=== PATIENT | female | born 1985 | race Caucasian/White ===

== ENCOUNTER → 2018-04-18 | Outpatient (CLI) | payer BC ==
[~2018-04-18] MED LIST: ACET-789 PO; AMLO2.5T PO; AMOX500C2 PO; DOCU-143 PO; IBUP-1773 PO; LABE100T6 PO; LEVO100T7 PO; LVT.05T PO; METF500T8 PO; NF-ESOM40C PO; OMEP20CA12 PO; OXYC-12 PO; PREN1TAB86 PO; PRENATAL VITAMINS
--- NOTE | 2018-04-18 20:13 | Diagnostic Imaging Report ---
INDICATION: Routine screening. No prior mammograms are available for comparison. This is a baseline study. 2-D and 3-D bilateral screening mammography was performed with a Computer Aided Detection (CAD) system. FINDINGS: Both breasts appear heterogeneously dense, limiting the sensitivity of mammography. No mass or malignant-appearing microcalcifications are seen. The axillae are unremarkable. IMPRESSION: No mammographic features suspicious for malignancy are identified. ACR BI-RADS Category 1: Negative. Result letter will be mailed to the patient. Note: At least 10% of breast cancer is not imaged by mammography. Dictated by: Dictated on workstation # [id number]
== END ==
LOC: RAD 12:51
PROVIDERS: ATTEND Family Medicine
DX: Z12.31 Encounter for screening mammogram for malignant neoplasm of breast (principal); Z85.3 Personal history of malignant neoplasm of breast
CPT/HCPCS: 77067

== ENCOUNTER → 2019-04-26 | Outpatient (CLI) | payer BC ==
--- NOTE | 2019-04-26 09:39 | Diagnostic Imaging Report ---
INDICATION: Routine screening. COMPARISON is made with prior mammogram from 04/18/2018. 2-D and 3-D bilateral screening mammography was performed with CAD. Both breasts remain heterogeneously dense, limiting the sensitivity of mammography. No mass or malignant appearing microcalcifications are seen. There does appear to be some ductal ectasia in the retroareolar regions of both breasts. Axillae are unremarkable. IMPRESSION: BI-RADS Category 2. No mammographic features suspicious for malignancy are identified. ACR BI-RADS Category 2: Benign findings. Result letter will be mailed to the patient. Note: At least 10% of breast cancer is not imaged by mammography. Dictated by: Dictated on workstation # [id number]
== END ==
LOC: RAD 07:51
PROVIDERS: ATTEND Family Medicine
DX: Z12.31 Encounter for screening mammogram for malignant neoplasm of breast (principal)
CPT/HCPCS: 77067

== ENCOUNTER → 2019-12-04 | Outpatient (CLI) | payer BC, OTHER ==
--- NOTE | 2019-12-04 13:11 | Diagnostic Imaging Report ---
EXAMINATION: Left hip at 12:42 PM. INDICATION: Hip pain. TECHNIQUE: AP and lateral views were obtained. FINDINGS: There is no fracture, dislocation, or acute bony abnormality evident. The hip joint is fairly well-maintained and appears similar to the quality rn film from the CT abdomen/pelvis exam of 07/13/2014. The soft tissues are unremarkable. IMPRESSION: There is no evidence for an acute bony abnormality. Dictated by: Dictated on workstation # [id number]
== END ==
LOC: RAD 12:13
PROVIDERS: ATTEND Family Medicine
DX: M25.552 Pain in left hip (principal)
CPT/HCPCS: 73502

== ENCOUNTER → 2021-06-04 | Outpatient (CLI) | payer BC | LOC: LABNPT 13:55 | PROVIDERS: ATTEND Obstetrics & Gynecology | DX: Z36.89 Encounter for other specified antenatal screening (principal) | CPT/HCPCS: 82105; 82677; 84702 ==

== ENCOUNTER → 2021-06-26 | Outpatient (CLI) | payer BC ==
--- NOTE | 2021-06-26 18:41 | Diagnostic Imaging Report ---
INDICATION: patient, survey. TECHNIQUE: Multiple real-time grayscale images were obtained over the gravid uterus. COMPARISON: There is no prior study for comparison. FINDINGS: A single live intrauterine fetus is seen measuring 21 weeks 0 days by composite measurements. The fetus is in cephalic presentation. Amniotic fluid is qualitatively normal. There is no subchorionic bleed. Placenta is anterior and grade 1 with no evidence of previa. heart rate is 140 bpm. Maternal adnexa were not well seen but show no free fluid. Sonographic EDC is 11/06/2021. anatomical survey showed no detectable abnormalities. Normal variant kidneys and bladder were seen. Normal-appearing stomach was seen. Intracranial ventricles were nondilated. Four-chamber heart view appears unremarkable. Three-vessel cord and cord insertion appear unremarkable. There is normal appearance of the spine. Biometrical measurements are as follows: Biparietal 4.71 cm, age 20 weeks 2 days. Head circumference 18.81 cm, age 21 weeks 1 days. Abdominal circumference 16.00 cm, age 21 weeks 2 days. Femur length 3.53 cm, age 21 weeks 2 days. Sonographic estimate age: 21 weeks 0 days. Sonographic estimated date of delivery: 11/06/2021. Estimated Weight: 399 gm (+/- 59 gm). LMP percentile: 58%. heart rate: 140 beats per minute. number: 1 of 1. IMPRESSION: Single live intrauterine fetus measuring 21 weeks 0 days in size. There was no detectable abnormality. Dictated by: Dictated on workstation # [id number]
== END ==
LOC: RAD 15:15
PROVIDERS: ATTEND Obstetrics & Gynecology
DX: Z34.02 Encounter for supervision of normal first pregnancy, second trimester (principal); Z3A.21 21 weeks gestation of pregnancy
CPT/HCPCS: 76805

== ENCOUNTER 2021-10-22 06:00 | Inpatient (IN) | payer MEDICAID ==
[2021-10-22] VITALS (62 sets, daily range): BP systolic 102–196; BP diastolic 57–102
[~2021-10-22] VITALS: Ht 165.1 cm; Wt 120.3 kg
[~2021-10-22 06:00] MED LIST changes: -LABE100T6 PO; +LABE100T9 PO
[2021-10-22] MEDS ORDERED: LABE100T9 PO (06:27)
[2021-10-22] MEDS ORDERED: LEVO100T7 PO (06:27)
[2021-10-22] MEDS ORDERED: METF-397 PO (06:28)
[2021-10-22] MEDS ORDERED: PREG100C55 PO (06:29)
[2021-10-22] MEDS ORDERED: CITA20TA9 PO (06:30)
[2021-10-22] MEDS ORDERED: LABE200T10 PO (06:31)
[2021-10-22] MEDS ORDERED: D5 LR IV SOLUTION 1,000 ML IV SCH (06:45)
[2021-10-22 07:00] LABS: BASOPHILS % (AUTO) 0 % (0-10); EOSINOPHILS # (AUTO) 0.1 10^3/uL (0.0-0.3); EOSINOPHILS % (AUTO) 1 % (0-10); HEMATOCRIT 35 % (35-52); HEMOGLOBIN 11.8 g/dL (11.5-16.0); LYMPHOCYTES % (AUTO) 22 % (12-44); MEAN CORPUSCULAR HEMOGLOBIN 30 pg (25-34); MEAN CORPUSCULAR HGB CONC 34 g/dL (32-36); MEAN CORPUSCULAR VOLUME 90 fL (80-99); MEAN PLATELET VOLUME 12.7 fL (9.0-12.2); MONOCYTES # (AUTO) 0.5 10^3/uL (0.0-1.0); MONOCYTES % (AUTO) 6 % (0-12); NEUTROPHILS # (AUTO) 6.3 10^3/uL (1.8-7.8); NEUTROPHILS % (AUTO) 71 % (42-75); PLATELET COUNT 187 10^3/uL (130-400); WHITE BLOOD COUNT 8.9 10^3/uL (4.3-11.0)
--- NOTE | 2021-10-22 07:30 | History & Physical-OB ---
MARTIN ANSARI 10/22/21729: OB - Chief Complaint & HPI Date/Time Date of Admission: Date of Admission: Oct 22, 2021 at 06:00 Date seen by a Provider: Oct 22, 2021 Time Seen by a Provider: 07:45 Chief Complaint/History OB-Reason for Admission/Chief: Induction of Labor Hx : 6 Hx Para: 1 Gestational Age in Weeks: 38 History of Labs 36 yo F @ 38 weeks here for induction of labor Advanced maternal age GDM on Metformin B+ RI RPR NR HBsAg NR HIV NR GC neg GBS neg Allergies and Home Medications Allergies Coded Allergies: No Known Drug Allergies (Unverified , 02/13/13) Patient Home Medication List Home Medication List Reviewed: Yes Citalopram Hydrobromide (Citalopram HBr) 20 Mg Tablet, 20 MG PO DAILY, (Reported) Entered as Reported by: JUDITH MARKS on 10/22/21629 Last Action: New Order Labetalol HCl (Labetalol HCl) 200 Mg Tablet, 200 MG PO BID, (Reported) Entered as Reported by: JUDITH MARKS on 10/22/21630 Last Action: New Order Levothyroxine Sodium (Levothyroxine Sodium) 100 Mcg Tablet, 88 MCG PO DAILY Prescribed by: JUDITH MARKS on 10/22/21626 Last Action: New Order Metformin HCl (Metformin HCl) 500 Mg Tablet, 500 MG PO TID, (Reported) Entered as Reported by: JUDITH MARKS on 10/22/21627 Last Action: New Order Pregabalin (Pregabalin) 100 Mg Capsule, 100 MG PO TID, (Reported) Entered as Reported by: JUDITH MARKS on 10/22/21628 Last Action: New Order Vit W-Ca,Fe,FA(<1 mg) ( Vitamins) 1 Each Tablet, 1 EACH PO DAILY, (Reported) Entered as Reported by: MISHA FLETCHER on 12/24/15613 Last Action: Reviewed Discontinued Medications Acetaminophen with Codeine (Tylenol with Codeine #3 Tablet) 1 Each Tablet, 1 EACH PO Q4H PRN for PAIN Discontinued Reason: No Longer Taking Prescribed by: MARY DUNHAM on 12/24/15 1283 Last Action: Discontinued Docusate Sodium (Colace) 100 Mg Capsule, 100 MG PO BID PRN for CONSTIPATION Discontinued Reason: No Longer Taking Prescribed by: MARY DUNHAM on 12/24/151843 Last Action: Discontinued Ibuprofen (Ibuprofen) 600 Mg Tablet, 600 MG PO Q6H Discontinued Reason: No Longer Taking Prescribed by: MARY DUNHAM on 12/24/151843 Last Action: Discontinued Labetalol HCl (Labetalol HCl) 100 Mg Tablet, 100 MG PO DAILY, (Reported) Discontinued Reason: No Longer Taking Entered as Reported by: ARABELLA TAYLOR on 12/24/15729 Last Action: Discontinued Labetalol HCl (Labetalol HCl) 100 Mg Tablet, 100 MG PO BID, (Reported) Discontinued Reason: No Longer Taking Entered as Reported by: JUDITH MARKS on 10/22/21626 Last Action: Discontinued Metformin Hcl (Metformin Er 500MG) 500 Mg Tab.sr.24h, 1 EACH PO DAILY WITH MEAL, (Reported) Discontinued Reason: No Longer Taking Entered as Reported by: SENA FERMIN on 07/14/145 Last Action: Discontinued OB - History Hx of Present Obstetrical Complications: Gestational Diabetes, Gestational Hypertension Medical Complications: None Information Induced Hypertension: Yes Maternal Gestational Diabetes: Yes Delivery History Hx Blood Disorders: No Patient Past Medical History see above hpi Cholecystecomy 7 years ago Immunizations Tetanus Booster (TDap): Less than 5yrs OB - Admission Exam Physical Exam Vitals: Vital Signs 10/22/21 06:35 Temp 36.3 Pulse 76 Resp 18 Pulse Ox 98 O2 Delivery Room Air Abdomen: Gravid Extremities: Normal Contractions on Admission: >10 Minutes Apart Labs Laboratory Tests Test 10/22/21 06:45 Range/Units White Blood Count 8.9 4.3-11.0 10^3/uL Red Blood Count 3.89 3.80-5.11 10^6/uL Hemoglobin 11.8 11.5-16.0 g/dL Hematocrit 35 35-52 % Mean Corpuscular Volume 90 80-99 fL Mean Corpuscular Hemoglobin 30 25-34 pg Mean Corpuscular Hemoglobin Concent 34 32-36 g/dL Red Cell Distribution Width 13.5 10.0-14.5 % Platelet Count 187 130-400 10^3/uL Mean Platelet Volume 12.7 H 9.0-12.2 fL Immature Granulocyte % (Auto) 0 % Neutrophils (%) (Auto) 71 42-75 % Lymphocytes (%) (Auto) 22 12-44 % Monocytes (%) (Auto) 6 0-12 % Eosinophils (%) (Auto) 1 0-10 % Basophils (%) (Auto) 0 0-10 % Neutrophils # (Auto) 6.3 1.8-7.8 10^3/uL Lymphocytes # (Auto) 2.0 1.0-4.0 10^3/uL Monocytes # (Auto) 0.5 0.0-1.0 10^3/uL Eosinophils # (Auto) 0.1 0.0-0.3 10^3/uL Basophils # (Auto) 0.0 0.0-0.1 10^3/uL Immature Granulocyte # (Auto) 0.0 0.0-0.1 10^3/uL OB - Assessment/Plan/Diagnosis Assessment Assessment: induction of labor Admission Dx 36 yo female @38 weeks here for induction of labor Admission Status: Inpatient Order (span 2 midnights) Reason for Inpatient Admission: observation Plan Plan: Expectant Management, Induction Induction Method: per Pitocin Protocol DANNY GOMEZ DO 10/22/21 1318: Allergies and Home Medications Allergies Coded Allergies: No Known Drug Allergies (Unverified , 02/13/13) Patient Home Medication List Citalopram Hydrobromide (Citalopram HBr) 20 Mg Tablet, 20 MG PO DAILY, (Report ed) Entered as Reported by: JUDITH MARKS on 10/22/21629 Last Action: New Order Labetalol HCl (Labetalol HCl) 200 Mg Tablet, 200 MG PO BID, (Reported) Entered as Reported by: JUDITH MARKS on 10/22/21630 Last Action: New Order Levothyroxine Sodium (Levothyroxine Sodium) 100 Mcg Tablet, 88 MCG PO DAILY Prescribed by: JUDITH MARKS on 10/22/21626 Last Action: New Order Metformin HCl (Metformin HCl) 500 Mg Tablet, 500 MG PO TID, (Reported) Entered as Reported by: JUDITH MARKS on 10/22/21627 Last Action: New Order Pregabalin (Pregabalin) 100 Mg Capsule, 100 MG PO TID, (Reported) Entered as Reported by: JUDITH MARKS on 10/22/2129 Last Action: New Order Vit W-Ca,Fe,FA(<1 mg) ( Vitamins) 1 Each Tablet, 1 EACH PO DAILY, (Reported) Entered as Reported by: MISHA M JUSTINE on 12/24/1514 Last Action: Reviewed Discontinued Medications Acetaminophen with Codeine (Tylenol with Codeine #3 Tablet) 1 Each Tablet, 1 EACH PO Q4H PRN for PAIN Discontinued Reason: No Longer Taking Prescribed by: MARY DUNHAM on 12/24/151843 Last Action: Discontinued Docusate Sodium (Colace) 100 Mg Capsule, 100 MG PO BID PRN for CONSTIPATION Discontinued Reason: No Longer Taking Prescribed by: MARY DUNAHM on 12/24/151843 Last Action: Discontinued Ibuprofen (Ibuprofen) 600 Mg Tablet, 600 MG PO Q6H Discontinued Reason: No Longer Taking Prescribed by: MARY DUNHAM on 12/24/151843 Last Action: Discontinued Labetalol HCl (Labetalol HCl) 100 Mg Tablet, 100 MG PO DAILY, (Reported) Discontinued Reason: No Longer Taking Entered as Reported by: ARABELLA TAYLOR on 12/24/1530 Last Action: Discontinued Labetalol HCl (Labetalol HCl) 100 Mg Tablet, 100 MG PO BID, (Reported) Discontinued Reason: No Longer Taking Entered as Reported by: JUDITH MARKS on 10/22/21626 Last Action: Discontinued Metformin Hcl (Metformin Er 500MG) 500 Mg Tab.sr.24h, 1 EACH PO DAILY WITH MEAL, (Reported) Discontinued Reason: No Longer Taking Entered as Reported by: SENA FERMIN on 07/14/14 0115 Last Action: Discontinued OB - Assessment/Plan/Diagnosis Plan Other Plan Verification and Attestation of Medical Student E/M Service A medical student performed and documented this service in my presence. I reviewed and verified all information documented by the medical student and made modifications to such information, when appropriate. I personally performed the physical exam and medical decision making. Danny Gomez, Oct 22, 2021,13:18 MARTIN ANSARI Oct 22, 2021 07:30 DANNY GOMEZ DO Oct 22, 2021 13:18
[2021-10-22] MEDS ORDERED: OXYTOCIN PRE-MIX DRIP 500 ML IV ONE (08:24)
[2021-10-22] MEDS ORDERED: NS IV 1000 ML 1,000 ML ONE (08:27)
[2021-10-22] MEDS: NS IV 1000 ML 1,000 ML IV SCH ×2 (08:33→14:51)
[2021-10-22] MEDS ORDERED: OXYTOCIN PRE-MIX DRIP 500 ML IV SCH ×2 (08:45→19:00)
[2021-10-22] MEDS ORDERED: fentaNYL 2 mcg/ml BUPIVA 0.125 100 ML ONE (13:20)
[2021-10-22] MEDS ORDERED: LACTATED RINGERS 1,000 ML IV ONE (13:20)
[2021-10-22] MEDS ORDERED: fentaNYL INJ 100 MCG/2 ML AMP ONE ×2 (13:53→14:20)
[2021-10-22] MEDS ORDERED: BUPIVACAINE 0.25% 10 ML (SENSORCAINE) VIAL ONE (13:53)
[2021-10-22] MEDS ORDERED: CATHETER FLUSH 10 ML SYR IV SCH ×2 (14:00→22:00)
[2021-10-22] MEDS ORDERED: BUPIVACAINE SPINAL 0.75% (SENSORCAINE) 2 ML AMP ONE (14:20)
[2021-10-22] MEDS: fentaNYL 2 mcg/ml BUPIVA 0.125 100 ML EPI SCH ×2 (14:30→14:45)
[2021-10-22] MEDS ORDERED: NALOXONE 0.4 MG/ML 1 ML (NARCAN) VIAL IV PRN ×3 (14:45→19:00)
[2021-10-22] MEDS ORDERED: LACTATED RINGERS 1,000 ML IV SCH ×2 (14:45)
[2021-10-22] MEDS ORDERED: fentaNYL 2 mcg/ml BUPIVA 0.125 100 ML EPI SCH (14:45)
[2021-10-22] MEDS ORDERED: diphenhydrAMINE 50 MG/ML INJ (BENADRYL) IV PRN ×2 (14:45)
[2021-10-22] MEDS ORDERED: ONDANSETRON 4 MG/2 ML (SDV) Z0FRAN IV PRN ×2 (14:45)
--- NOTE | 2021-10-22 18:59 | OB Labor & Delivery Record ---
L&D History Date of Service Date of Service: Oct 22, 2021 History Expected Date of Delivery: Nov 07, 2021 Gestational Age in Weeks: 38 Hx : 6 Hx Para: 1 Complications Events: Gestational Diabetes, Routine care Operative Indications (Cesarea: N/A-Vaginal Delivery Intrapartal Events: None L&D Stage1 Stage One Onset of Labor - Date: Oct 22, 2021 Monitors and Tracing Monitor Mode: External Heart Rate: 130 Monitor Accelerations: Uniform Monitor Decelerations: Variable Station: -2 Detention Variability: Average (6-10) Short Term Variability: Present Presentation: Vertex Vital Signs VS - Last 72 Hours, by Label 10/22/21 10/22/21 10/22/21 10/22/21 06:35 07:30 08:30 08:45 Temp 36.3 36.8 36.8 Pulse 76 71 75 75 Resp 18 18 18 18 B/P (MAP) 136/68 (90) 187/84 (118) 187/84 (118) Pulse Ox 98 O2 Delivery Room Air Room Air Room Air Room Air 10/22/21 10/22/21 10/22/21 10/22/21 09:36 09:45 10:00 10:15 Temp 36.8 Pulse 75 76 58 67 Resp 18 18 18 18 B/P (MAP) 139/83 (101) 145/76 (99) 133/71 (91) 138/70 (92) Pulse Ox 98 98 98 99 O2 Delivery Room Air Room Air Room Air Room Air 10/22/21 10/22/21 10/22/21 10/22/21 10:30 10:45 11:00 11:15 Temp 36.7 Pulse 70 70 70 70 Resp 18 18 18 18 B/P (MAP) 142/67 (92) 146/76 (99) 146/76 (99) 146/76 (99) Pulse Ox 99 99 99 99 O2 Delivery Room Air Room Air Room Air Room Air 10/22/21 10/22/21 10/22/21 10/22/21 11:30 11:45 12:00 12:15 Temp 36.6 Pulse 70 70 70 70 Resp 18 18 18 18 B/P (MAP) 146/76 (99) 157/72 (100) 157/72 (100) 157/72 (100) Pulse Ox 99 99 99 99 O2 Delivery Room Air Room Air Room Air Room Air 10/22/21 10/22/21 10/22/21 10/22/21 12:30 12:45 13:36 13:45 Pulse 70 70 70 71 Resp 18 18 18 18 B/P (MAP) 157/72 (100) 157/72 (100) 174/79 (110) 164/69 (100) Pulse Ox 99 99 98 99 O2 Delivery Room Air Room Air Room Air Room Air 10/22/21 10/22/21 10/22/21 10/22/21 14:00 14:02 14:05 14:08 Temp 36.8 36.8 Pulse 71 71 85 82 Resp 18 18 18 18 B/P (MAP) 192/83 (119) 192/83 (119) 196/80 (118) 188/77 (114) Pulse Ox 99 99 97 97 O2 Delivery Room Air Room Air Room Air Room Air 10/22/21 10/22/21 10/22/21 10/22/21 14:11 14:14 14:17 14:19 Pulse 86 70 76 74 Resp 18 18 18 18 B/P (MAP) 190/81 (117) 170/81 (110) 177/86 (116) 162/75 (104) Pulse Ox 97 99 99 99 O2 Delivery Room Air Room Air Room Air 10/22/21 10/22/21 10/22/21 10/22/21 14:25 14:30 14:35 14:45 Pulse 71 66 70 69 Resp 18 18 18 18 B/P (MAP) 151/68 (95) 141/67 (91) 129/61 (83) 153/72 (99) Pulse Ox 99 98 99 99 10/22/21 10/22/21 10/22/21 10/22/21 15:00 15:15 15:30 15:45 Pulse 69 72 72 72 Resp 18 18 18 18 B/P (MAP) 153/72 (99) 136/74 (94) 136/74 (94) 136/74 (94) Pulse Ox 99 99 99 99 10/22/21 10/22/21 10/22/21 10/22/21 16:00 16:15 16:30 16:45 Pulse 72 70 70 71 Resp 18 18 18 18 B/P (MAP) 138/75 (96) 130/69 (89) 130/76 (94) 134/78 (96) Pulse Ox 99 99 98 98 10/22/21 10/22/21 17:00 17:30 Temp 36.7 Pulse 65 Resp 18 B/P (MAP) 135/69 (91) Pulse Ox 100 O2 Flow Rate 15.00 Rupture of Membranes Spontaneous Ruture of Membrane: No Amniotic Membrane Rupture Time: 08 Amniotic Membrane Fluid Desc.: Clear Vaginal Bleeding Description: Normal Show Induction/Anesthesia Epidural Cath Placement - Time: 1412 L&D Stage2 Stage Two Stage II Date: Oct 22, 2021 Monitors and Tracing Monitor Mode: External Heart Rate: 130 Position: Right Occiput Anterior Presentation: Vertex Cord Descript/Complications Cord Vessel Description: 3 Vessels Complications heart rate dropped to 50s during 2nd stage labor. Due to need for urgent delivery +2 station, kiwi vacuum used. Cup placed over flexion point on scalp. 550 mg Hg applied using handpiece, and with gentle extension the head was delivered over intact perineum. Tight nuchal cord delivered through Delivery Type Delivery Method: Spontaneous Vaginal Anterior Shoulder: Right Episiotomy/Perineal Laceration Laceraction(s)/Extensions: No Condition of Infant Delivery 1 minute Comment: 8 5 minute Comment: 9 Notes Live male weight pending Condition of Condition of Infant: Living Exam: No Observed Abnormalities Resuscitation Resuscitation: N/A - Spontaneous Resp L&D Stage3 Stage Three Stage III Date: Oct 22, 2021 Pictocin Pitocin Administration mu/min: 2 Pitocin ml/hr: 2 Pitocin Administration Comment: 30 mu wide open after delivery of placenta Placenta Delivery Placenta Delivery: Spontaneous Delivery Summary Summary Estimated blood loss (mL): 300 Attending at delivery: Francoise Argueta DO Condition of Delivery Examined: Cervix Examined, Uterus Explored Post Hemorrhage: No Condition of Mother stable Condition of (s) stable FRANCOISE ARGUETA DO Oct 22, 2021 18:59
[2021-10-22] MEDS ORDERED: TETANUS,DIPTH,PERTUSS P/F (BOOSTRIX) 0.5 ML VIAL IM ONE (19:00)
[2021-10-22] MEDS ORDERED: MEASLES,MUMPS,RUBELLA 1 EA INJ SQ ONE (19:00)
[2021-10-22] MEDS ORDERED: BENZOCAINE/MENTHOL (DERMOPLAST) 56 ML CAN TP PRN (19:00)
[2021-10-22] MEDS ORDERED: WITCH HAZEL(TUCKS) 40 EA JAR TOP PRN (19:00)
[2021-10-22] MEDS ORDERED: DIBUCAINE 1% OINTMENT 30 GM TUBE TOP PRN (19:00)
--- NOTE | 2021-10-22 19:11 | Discharge Inst-Women's Service ---
Discharge Inst-Women's Serv Depart Medication/Instructions New, Converted or Re-Newed RX: Transmitted to Pharmacy Final Diagnosis PPD 1 VAVD Problems Reviewed?: Yes Consults/Follow Up Additional Follow Up: Yes Orders/Referrals Dr. Argueta in 6 weeks Activity Activity: Activity as Tolerated Driving Instructions: No Driving for 1 Week NO SMOKING: NO SMOKING Nothing Inside Vagina: No Douching, No [place], No Tampons Diet Discharge Diet: No Restrictions Symptoms to Report to : Bleeding Excessive, Pain Increased, Fever Over 101 Degrees F, Vaginal Bleeding Increase, Questions/Concerns For Any Problems or Questions: Contact Your Physician FRANCOISE ARGUETA DO Oct 22, 2021 19:11
[2021-10-22] MEDS ORDERED: DOCU100C37 PO (19:13)
[2021-10-22] MEDS ORDERED: DIBU30OI TOP (19:13)
[2021-10-22] MEDS ORDERED: BENZ78AE5 TP (19:13)
[2021-10-22] MEDS ORDERED: IBUP-844 PO (19:13)
[2021-10-22] MEDS: DOCUSATE SODIUM 100 MG (COLACE) CAP PO SCH (22:10)
[2021-10-22] MEDS: IBUPROFEN 600 MG (MOTRIN) TAB PO SCH (22:10)
[2021-10-22] MEDS: LABETALOL 200 MG (NORMODYNE) TAB PO SCH (22:10)
[2021-10-22] MEDS: metFORMIN 500 MG (GLUCOPHAGE) TAB PO SCH (22:10)
[2021-10-23 02:15] VITALS: BP 130/59
[2021-10-23] MEDS: IBUPROFEN 600 MG (MOTRIN) TAB PO SCH ×4 (04:22→21:57)
[2021-10-23 06:04] LABS: BASOPHILS % (AUTO) 0 % (0-10); EOSINOPHILS # (AUTO) 0.1 10^3/uL (0.0-0.3); EOSINOPHILS % (AUTO) 1 % (0-10); HEMATOCRIT 33 % (35-52); HEMOGLOBIN 11.1 g/dL (11.5-16.0); LYMPHOCYTES # (AUTO) 2.1 10^3/uL (1.0-4.0); LYMPHOCYTES % (AUTO) 21 % (12-44); MEAN CORPUSCULAR HEMOGLOBIN 30 pg (25-34); MEAN CORPUSCULAR HGB CONC 34 g/dL (32-36); MEAN CORPUSCULAR VOLUME 90 fL (80-99); MEAN PLATELET VOLUME 12.6 fL (9.0-12.2); MONOCYTES # (AUTO) 0.6 10^3/uL (0.0-1.0); MONOCYTES % (AUTO) 6 % (0-12); NEUTROPHILS # (AUTO) 7.4 10^3/uL (1.8-7.8); NEUTROPHILS % (AUTO) 72 % (42-75); PLATELET COUNT 168 10^3/uL (130-400); WHITE BLOOD COUNT 10.2 10^3/uL (4.3-11.0)
[2021-10-23 06:45] VITALS: BP 126/63
[2021-10-23] MEDS: LEVOTHYROXINE 88 MCG (LEVOTHORID) TAB PO SCH (06:46)
[2021-10-23 08:15] VITALS: BP 149/70
[2021-10-23] MEDS: FERROUS SULF 325 MG (IRON) TAB PO SCH (08:16)
[2021-10-23] MEDS: DOCUSATE SODIUM 100 MG (COLACE) CAP PO SCH ×2 (08:16→21:56)
[2021-10-23] MEDS: LABETALOL 200 MG (NORMODYNE) TAB PO SCH ×2 (08:17→21:57)
[2021-10-23] MEDS: metFORMIN 500 MG (GLUCOPHAGE) TAB PO SCH ×3 (08:17→21:57)
[2021-10-23] MEDS: PRENATAL VITAMIN 1 EA TAB PO SCH (08:17)
--- NOTE | 2021-10-23 10:14 | Postpartum Progress Note ---
Note Note Day # 1 Subjective: Patient is without complaints. Ambulating, voiding. Tolerating a regular diet without nausea or vomiting. Normal lochia. Pain is well controlled with oral pain medications. Physical Exam: General - Alert and oriented, no apparent distress Abdomen - Soft, appropriately tender to palpation, non-distended, fundus firm at umbilicus Extremities - no edema, negative Augusto's bilaterally Assessment: Post- day # 1, status post vaginal delivery. Recovering well, hemodynamically stable Acute blood loss anemia Plan: Routine care. Encourage breast feeding. Encourage ambulation. Ferrous sulfate supplementation. Plan for discharge today Vitals - Labs Vital Signs - I&O Vital Signs Date Time Temp Pulse Resp B/P (MAP) Pulse Ox O2 Delivery O2 Flow Rate FiO2 10/23/21 08:15 36.2 66 18 149/70 (96) 98 Room Air 10/23/21 06:45 36.1 69 18 126/63 (84) 97 Room Air 10/23/21 02:15 36.4 79 18 130/59 (82) 97 Room Air 10/22/21 22:07 80 18 139/67 (91) Room Air 10/22/21 21:59 83 18 122/63 (82) Room Air 10/22/21 21:44 90 18 126/69 (88) Room Air 10/22/21 21:29 85 18 127/60 (82) Room Air 10/22/21 21:14 87 18 121/60 (80) Room Air 10/22/21 20:59 88 18 129/60 (83) Room Air 10/22/21 20:44 84 18 140/70 (93) Room Air 10/22/21 20:29 92 18 143/67 (92) Room Air 10/22/21 20:14 85 18 102/59 (73) Room Air 10/22/21 19:59 85 18 151/63 (92) Room Air 10/22/21 19:45 74 18 153/71 (98) Room Air 10/22/21 19:44 74 18 177/102 (127) Room Air 10/22/21 19:29 35.7 77 18 174/95 (121) Room Air 10/22/21 19:15 162/81 (108) 10/22/21 19:00 171/84 (113) 10/22/21 18:45 36.7 65 18 122/57 (78) 100 Room Air 15.00 15.00 10/22/21 18:30 36.7 65 18 122/57 (78) 100 Room Air 15.00 15.00 10/22/21 18:15 36.7 65 18 122/57 (78) 100 Room Air 15.00 15.00 10/22/21 18:01 122/58 (79) 10/22/21 18:00 36.7 65 18 122/57 (78) 100 Room Air 15.00 15.00 10/22/21 17:45 36.7 65 18 122/57 (78) 100 Room Air 15.00 15.00 10/22/21 17:30 65 18 135/69 (91) 100 15.00 10/22/21 17:00 36.7 10/22/21 16:45 71 18 134/78 (96) 98 10/22/21 16:30 70 18 130/76 (94) 98 10/22/21 16:15 70 18 130/69 (89) 99 10/22/21 16:00 72 18 138/75 (96) 99 10/22/21 15:45 72 18 136/74 (94) 99 10/22/21 15:30 72 18 136/74 (94) 99 10/22/21 15:15 72 18 136/74 (94) 99 10/22/21 15:00 69 18 153/72 (99) 99 10/22/21 14:45 69 18 153/72 (99) 99 10/22/21 14:35 70 18 129/61 (83) 99 10/22/21 14:30 66 18 141/67 (91) 98 10/22/21 14:25 71 18 151/68 (95) 99 10/22/21 14:19 74 18 162/75 (104) 99 10/22/21 14:17 76 18 177/86 (116) 99 Room Air 10/22/21 14:14 70 18 170/81 (110) 99 Room Air 10/22/21 14:11 86 18 190/81 (117) 97 Room Air 10/22/21 14:08 82 18 188/77 (114) 97 Room Air 10/22/21 14:05 36.8 85 18 196/80 (118) 97 Room Air 10/22/21 14:02 36.8 71 18 192/83 (119) 99 Room Air 10/22/21 14:00 71 18 192/83 (119) 99 Room Air 10/22/21 13:45 71 18 164/69 (100) 99 Room Air 10/22/21 13:36 70 18 174/79 (110) 98 Room Air 10/22/21 12:45 70 18 157/72 (100) 99 Room Air 10/22/21 12:30 70 18 157/72 (100) 99 Room Air 10/22/21 12:15 70 18 157/72 (100) 99 Room Air 10/22/21 12:00 70 18 157/72 (100) 99 Room Air 10/22/21 11:45 70 18 157/72 (100) 99 Room Air 10/22/21 11:30 36.6 70 18 146/76 (99) 99 Room Air 10/22/21 11:15 70 18 146/76 (99) 99 Room Air 10/22/21 11:00 70 18 146/76 (99) 99 Room Air 10/22/21 10:45 70 18 146/76 (99) 99 Room Air 10/22/21 10:30 36.7 70 18 142/67 (92) 99 Room Air 10/22/21 10:15 67 18 138/70 (92) 99 Room Air I & O 10/23/21 07:00 Intake Total 2500 ml Balance 2500 ml Labs Laboratory Tests 10/22/21 22:07: Glucometer 152H 10/23/21 05:46: White Blood Count 10.2, Red Blood Count 3.68L, Hemoglobin 11.1L, Hematocrit 33L, Mean Corpuscular Volume 90, Mean Corpuscular Hemoglobin 30, Mean Corpuscular Hemoglobin Concent 34, Red Cell Distribution Width 13.1, Platelet Count 168, Mean Platelet Volume 12.6H, Immature Granulocyte % (Auto) 0, Neutrophils (%) (Auto) 72, Lymphocytes (%) (Auto) 21, Monocytes (%) (Auto) 6, Eosinophils (%) (Auto) 1, Basophils (%) (Auto) 0, Neutrophils # (Auto) 7.4, Lymphocytes # (Auto) 2.1, Monocytes # (Auto) 0.6, Eosinophils # (Auto) 0.1, Basophils # (Auto) 0.0, Immature Granulocyte # (Auto) 0.0 10/23/21 06:44: Glucometer 92 JOVANNY DIAZ APRN Oct 23, 2021 10:14
[2021-10-23] MEDS ORDERED: TETANUS,DIPTH,PERTUSS P/F (BOOSTRIX) 0.5 ML VIAL IM ONE (13:05)
[2021-10-23 15:44] VITALS: BP 138/65
--- NOTE | 2021-10-23 18:05 | Anesthesia-Regional Post-Op ---
Regional Patient Condition Headache: Present (slight) Post Op Complications Complications None Follow Up Care/Instructions Patient Instructions Patient with IT catheter. Removed without difficulty. Tip intact. Spoke with Patient about expectations, risk, side effects and treatment option if a PDPH develops. Patient verbalized understanding. Anesthesia/Patient Condition Patient is doing well, no complaints other than noted above, stable vital signs, no apparent adverse anesthesia problems. No complications reported per nursing. MORRIS SWAIN CRNA Oct 23, 2021 18:04
[2021-10-23 21:57] VITALS: BP 131/61
[2021-10-23] MEDS ORDERED: ACETAMINOPHEN 500 MG TAB (TYLENOL) PO PRN ×2 (23:45→23:59)
[2021-10-23] MEDS ORDERED: ACETAMINOPHEN 500 MG TAB (TYLENOL) ONE (23:48)
[2021-10-24 03:42] VITALS: BP 121/59
[2021-10-24] MEDS: IBUPROFEN 600 MG (MOTRIN) TAB PO SCH ×3 (03:42→16:40)
[2021-10-24 08:27] VITALS: BP 147/67
[2021-10-24] MEDS: metFORMIN 500 MG (GLUCOPHAGE) TAB PO SCH ×2 (08:32→16:39)
[2021-10-24] MEDS: DOCUSATE SODIUM 100 MG (COLACE) CAP PO SCH (08:32)
[2021-10-24] MEDS: PRENATAL VITAMIN 1 EA TAB PO SCH (08:32)
[2021-10-24] MEDS: FERROUS SULF 325 MG (IRON) TAB PO SCH (08:32)
[2021-10-24] MEDS: LABETALOL 200 MG (NORMODYNE) TAB PO SCH (08:32)
[2021-10-24] MEDS: LEVOTHYROXINE 88 MCG (LEVOTHORID) TAB PO SCH (08:32)
--- NOTE | 2021-10-24 16:13 | Postpartum Progress Note ---
Note Note Day # 2 Subjective: Patient is without complaints. Ambulating, voiding. Tolerating a regular diet without nausea or vomiting. Normal lochia. Pain is well controlled with oral pain medications. Physical Exam: General - Alert and oriented, no apparent distress Resp: non-labored, symmetric chest rise Heart: normal rate and peripheral perfusion Extremities - no edema, negative Augusto's bilaterally Assessment: Post- day # 2, status post vaginal delivery. Recovering well, hemodynamically stable chronic HTN Plan: Routine care. Encourage breast feeding. Encourage ambulation. Ferrous sulfate supplementation Continue home dose antihypertensives. Plan for discharge today Vitals - Labs Vital Signs - I&O Vital Signs Date Time Temp Pulse Resp B/P (MAP) Pulse Ox O2 Delivery O2 Flow Rate FiO2 10/24/21 08:27 36.7 68 18 147/67 (93) 96 Room Air 10/24/21 03:42 36.2 76 18 121/59 (79) 98 Room Air 10/23/21 21:57 36.3 78 18 131/61 (84) 98 Room Air Labs Laboratory Tests 10/23/21 18:39: Glucometer 112H 10/23/21 23:45: Glucometer 111H 10/24/21 13:13: Glucometer 93 NEHAL BERMAN MD Oct 24, 2021 16:13
[2021-10-24 16:41] VITALS: BP 138/63
[2021-10-24 16:50] VITALS: BP 138/63
== END 2021-10-24 16:50 | disposition home or self-care (01) | DRG 806 ==
LOC: LDRP 06:00
PROVIDERS: ADMIT Obstetrics & Gynecology; ATTEND Obstetrics & Gynecology
PROC: 10E0XZZ Delivery of Products of Conception, External Approach (ICD-10-PCS; principal; 2021-10-22)
PROC: 3E033VJ Introduction of Other Hormone into Peripheral Vein, Percutaneous Approach (ICD-10-PCS; 2021-10-22)
DX: O24.429 Gestational diabetes mellitus in childbirth, unspecified control (principal); D62 Acute posthemorrhagic anemia; Z37.0 Single live birth; O13.4 Gestational [pregnancy-induced] hypertension without significant proteinuria, complicating childbirth; Z3A.38 38 weeks gestation of pregnancy; Z79.84 Long term (current) use of oral hypoglycemic drugs; Z79.899 Other long term (current) drug therapy; O69.81X0 Labor and delivery complicated by cord around neck, without compression, not applicable or unspecified; O90.81 Anemia of the puerperium
CPT/HCPCS: 36415; 82947; 85025; 86850; 86900; 86901; 90715

== ENCOUNTER → 2021-10-26 | Outpatient (CLI) | payer MEDICAID ==
[~2021-10-26] MED LIST changes: +BENZ78AE5 TP; +CITA20TA9 PO; +DIBU30OI TOP; +DOCU100C37 PO; +IBUP-844 PO; +LABE200T10 PO; +METF-397 PO; +PREG100C55 PO
--- NOTE | 2021-10-26 14:40 | Anesthesia-Procedure Note ---
Procedures/Interventions Procedure Start/Stop/Diagnosis Date of Procedure: Oct 26, 2021 Start Time: 12:56 Referring Physician: Jason Preprocedural Diagnosis: PDPH Brief History Patient had known wet-tap on 10/22/21 during epidural placement. She presented today with complaint of debilitating headache that has lasted for 3 days. Explained epidural blood patch, procedure, and risks of procedure (including a repeat dural puncture), and all questions answered. Consent signed. Stop Time: 13:16 Blood Patch Blood Patch See all procedure notes and VS on anesthesia record. Patient tolerated procedure well and denied headache upon discharge. JLUIS MEDINA CRNA Oct 26, 2021 14:40
--- NOTE | 2021-10-28 14:14 | Anesthesia-Regional Post-Op ---
Regional Post Op Complications Complications None Follow Up Care/Instructions Patient Instructions None needed. Anesthesia/Patient Condition Attempted to phone patient for follow up re: epidural blood patch. No answer. Left message with our contact information for any questions she may have. JOE MOSER CRNA Oct 28, 2021 14:14
== END ==
LOC: SDC 12:45
PROVIDERS: ATTEND Nurse Anesthetist, Certified Registered
DX: Z01.89 Encounter for other specified special examinations (principal)